=== PATIENT | female | born 1990 | race Caucasian/White ===

== ENCOUNTER 2016-12-12 09:20 | Day surgery (SDC) | payer BC, OTHER ==
--- NOTE | 2016-12-12 07:19 | PDGENHP ---
History and Physical History and Physical: Assessment and Plan: 1. Endometriosis determined by laparoscopy Lorrie has laparoscopic proven endometriosis, which appears to have been minimally treated, if at all. She has remained symptomatic for years. She has failed medical management. At the end of our discussion she is interested in surgical excision of all endometriosis. She and her are considering another sometime in the future. As a result, I would not recommend treating her vaginal prolapse at this time. I will perform her preoperative counseling over the phone. 2. Dysmenorrhea 3. Dyschezia 4. Dyspareunia, female 5. Constipation, unspecified Subjective: Patient ID: Lorrie Weiss is a 25 y.o. female who presents to [facility] for endometriosis. HPI Lorrie is a 25-year-old, para 2, woman, who presents todiscuss pelvic pain and endometriosis. She developed extremely painful menses began at the age of 16. The pain was so severe she felt presyncopal. At age 17 she had hematochezia and underwent a colonoscopy and upper endoscopy, which was apparently unremarkable. She was diagnosed with irritaable bowel syndrome. She was started on control pills at the age of 18. She has tried multiple different brands none of which adequately controlled her symptoms. Finally, in 2010 she underwent a laparoscopy by a doctor at [facility]. She was found to have endometriosis. Lorrie is not sure what he did during the surgery. However, afterwards, she was offered an IUD, Depo-Provera, or Lupron. She chose an IUD. She found this very uncomfortable with insertion. She did not find it helped any of her symptoms. After 2 year she had an ultrasound which showed the IUD in the cervix and it was removed. She then easily conceived her first daughter. Afterwards, she relatively easily conceived her second daughter last year. She breast-fed for 10 months to try to postpone recurrence of menses. She apparently was thought to have a cystocele, . Since resuming her menses her pain has become even worse than before. Her cycles are regular every month. She will bleed 5 days. 2-3 of the days are heavier when she will have to change her pad every 3 hours. She has found tampons are now painful to insert. She develops pain beginning 7 days before her menstrual flow. The pain significantly intensifies the day before her menses and the first 3 days of her flow. She will use Vicodin and ibuprofen, which only provide minimal relief. She describes the pain as a mid pelvic cramping pain as well as a severe left lower quadrant stabbing pain. The pain will radiate down both of her legs and to her low back. She feels as though a hot iron is going through her abdomen. She finds it very difficult to move at all even after taking the Vicodin. She has dyschezia the day before and during her menses, which is a deep pain. She has dyspareunia all month long. It is in the left mid abdomen. It also hurts for 2 days afterwards. She has no chest pain or shortness of breath with her menses. More recently, she has developed midcycle pain, which is not as severe as her dysmenorrhea. Vicodin does allow her to function does days. She under has been living in [place]. She and her have been for 6 years. 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 After her visit she did email me scanned intraoperative photos from her laparoscopy. She has endometriosis on both uterosacral ligaments, especially on the right. She appears to have deep lesions on the right ligament. She also has endometriosis in the posterior cul-de-sac and laterally in the pelvis. Both fallopian tubes have adhesions and endometriosis to the lateral pelvis. The fimbriated ends appeared to be intact. No obvious endometriosis was seen on the uterus. She appeared to have an endometrioma on the left ovary. Presumably, that was drained or removed. PastMedicalHistory Past Medical History: Diagnosis Date Depression Endometriosis Gastrointestinal disorder PastSurgicalHistory Past Surgical History: Procedure Laterality Date COLONOSCOPY 2008 HAND SURGERY Left 2015 PELVIC LAPAROSCOPY 2010 CURRENT MEDICATIONS: Current Outpatient Prescriptions Medication Sig ACETAMINOPHEN (TYLENOL PO) FLUoxetine (PROZAC) 10 mg capsule Take 1 capsule by mouth daily HYDROcodone-acetaminophen (NORCO) 5-325 mg This med has acetaminophen (APAP ). IBUPROFEN PO No current facility-administered medications for this visit. ALLERGIES: Ciprofloxacin I have reviewed, verified and agree with the past medical, surgical, , family, social and ROS history as documented by the RN today. Review of Systems Objective: Vital Signs: Visit Vitals BP 104/62 Pulse 80 Temp 37.1 C (98.8 F) (Temporal Artery) Resp 16 Ht 1.676 m (5' 6") Wt 61.8 kg (136 lb 3.2 oz) SpO2 98% BMI 21.98 kg/m2 Physical Exam Gen: This is an alert, well developed woman in no distress. Neuro: She moves all extremities. Psych: She is appropriate, oriented, with normal affect. Neck: No thyroid enlargement, adenopathy, or tenderness. Lungs: Clear to ascultation, no wheezes or rales. Heart: Regular rate and rhythm without obvious murmurs. Abdomen: Soft, non-tender, without guarding, rebound, or masses. Extremities: No edema or cyanosis. Pelvic: Normal external genitalia. Non-gaping introitus, vagina without discharge, adequately estrogenized, no significant prolapse. Cervix without lesions or discharge. Uterus normal sized, tender posteriorly, around the cervix with reduced mobility. The uterosacral ligaments are exquisitely tender with nodularity on the right. The introitus is gaping. She has an almost third-degree cystourethrocele and greater than a second-degree rectocele with a hypermobile perineal body. DATA: Pelvic ultrasound Findings: The uterus is mid position and measures 7.7 x 3.8 x 5.0 cm. The endometrium measures 8 mm. No obvious uterine abnormalities are seen. The right ovary measures 4.2 x 1.7 cm. It contains a 1.3 cm cyst on the medial aspect with a groundglass appearance. The left ovary is difficult to measure given the shadowing from the uterus. Both adnexa are exquisitely tender. They appear to be somewhat adherent to the pelvic sidewalls. Impression: Possible 1.3 cm medial right ovarian endometrioma. Tender adnexa, which may be adherent to the pelvic sidewalls. No evidence of adhesions between the posterior uterus and rectum. TIME/COMMUNICATION: I personally spent a total of 70 minutes. Of that 45 minutes was counseling/ coordination of patient's care. See my note above for details. Terrance Mathis MD Board Certified Female Pelvic Medicine and Reconstructive Surgery Director of Minimally Invasive Gynecologic Surgery, [facility] Minimally Invasive Gynecologic Surgery Designee
[2016-12-12] MEDS ORDERED: ceFAZolin 2 GM/DEXTROSE 100 ML IV ONE (09:39)
[2016-12-12] MEDS ORDERED: PHENAZOPYRIDINE HCL 100 MG TAB PO ONE (09:39)
[2016-12-12] MEDS ORDERED: PHENAZOPYRIDINE HCL 200 MG TAB PO ONE (09:45)
[2016-12-12] MEDS ORDERED: MIDAZOLAM 2 MG/2 ML VIAL IVP ONE (10:10)
--- NOTE | 2016-12-12 10:10 | PDANEPAE ---
ANE History of Present Illness laparoscopic excision of endometriosis ANE Past Medical History - Cardiovascular History Hx Hypertension: No Hx Arrhythmias: No Hx Chest Pain: No Hx Coronary Artery / Peripheral Vascular Disease: No Hx CHF / Valvular Disease: No Hx Palpitations: No - Pulmonary History Hx COPD: No Hx Asthma/Reactive Airway Disease: Yes Hx Recent Upper Respiratory Infection: No Hx Oxygen in Use at Home: No Hx Sleep Apnea: No Sleep Apnea Screening Result - Last Documented: Negative Pulmonary History Comment: childhood asthma- rarely uses inhaler. - Neurologic History Hx Cerebrovascular Accident: No Hx Seizures: No Hx Dementia: No - Endocrine History Hx Diabetes: No Hypothyroid: No Hyperthyroid: No - Renal History Hx Renal Disorders: Yes Renal History Comment: "w/flare up of endometriosis- difficult and painful to empty bladder", takes Percocet prn pain with period - Liver History Hx Hepatic Disorders: No - Neurological & Psychiatric Hx Hx Neurological and Psychiatric Disorders: Yes Neurological / Psychiatric History Comment: depression -on Rx - Cancer History Hx Cancer: No - Congenital Disorder History Hx Congenital Disorders: No - GI History GERD: no Hx Gastrointestinal Disorders: Yes Gastrointestinal History Comment: IBS ?(symptoms similar to endometriosis - Other Health History Other Health History: endometriosis problems about 10 yrs causing severe pain in back and pelvis. - Chronic Pain History Chronic Pain: Yes (pelvis/back) - Surgical History Prior Surgeries: cactus thorn excised from hand age 21. dx laparascopy age 19. colonoscopy/endoscopy ([place]) age 16. ANE Review of Systems Review of Systems: - Exercise capacity METS (RN): 4 METS ANE Patient History - Allergies Allergies/Adverse Reactions: ciprofloxacin Allergy (Verified 11/19/16 15:59) Vomiting - Home Medications Home Medications: FLUoxetine 11/19/16 [Last Taken 12/10/16] IBUPROFEN 11/19/16 [Last Taken 12/05/16] Percocet 5-325 mg Tablet 11/19/16 [Last Taken 12/10/16] - NPO status NPO Since - Liquids (Date): 12/12/16 NPO Since - Liquids (Time): 07:30 NPO Since - Solids (Date): 12/11/16 NPO Since - Solids (Time): 23:30 - Smoking Hx Smoking Status: Never smoked ANE Labs/Vital Signs - Vital Signs Blood Pressure: 134/75 Heart Rate: 74 Respiratory Rate: 16 O2 Sat (%): 99 Height: 167.64 cm Weight: 61.235 kg ANE Physical Exam - Airway Neck exam: FROM Mallampati Score: Class 1 Mouth exam: normal dental/mouth exam - Pulmonary Pulmonary: clear to auscultation - Cardiovascular Cardiovascular: regular rate and rhythym - ASA Status ASA Status: II ANE Anesthesia Plan Anesthesia Plan: general endotracheal anesthesia
[2016-12-12] MEDS ORDERED: LIDOCAINE 1% 2 ML INJ ID PRN (10:15)
[2016-12-12] MEDS ORDERED: LR 1,000 ML IV ONE (10:15)
[2016-12-12] MEDS ORDERED: PROPOFOL 200 MG/20 ML VIAL ONE ×3 (10:16→12:02)
[2016-12-12] MEDS ORDERED: fentaNYL 100 MCG/2 ML INJ ONE ×3 (10:16→12:41)
[2016-12-12] MEDS ORDERED: KETAMINE 100 MG/10 ML SYR ONE (10:16)
[2016-12-12] MEDS ORDERED: ROCURONIUM 50 MG/5 ML VIAL ONE ×2 (10:18→12:00)
[2016-12-12] MEDS ORDERED: BUPIVACAINE 0.5% 30 ML SDV ONE (10:19)
[2016-12-12] MEDS ORDERED: DEXAMETHASONE 4 MG/ML VIAL ONE ×2 (10:19)
[2016-12-12] MEDS ORDERED: PHENYLEPHRINE HCL 100 MCG/ML SYR ONE (10:44)
[2016-12-12] MEDS ORDERED: ONDANSETRON 4 MG/2 ML VIAL ONE (12:08)
[2016-12-12] MEDS ORDERED: GLYCOPYRROLATE 0.2 MG/1 ML VIAL ONE (12:11)
[2016-12-12] MEDS ORDERED: NEOSTIGMINE METHYLSULFATE 5 MG/5 ML SYR ONE (12:11)
[2016-12-12] MEDS: HYDROmorphONE/DILAUDID 1 MG/ML SYR IVP PRN ×3 (12:37→13:26)
[2016-12-12] MEDS ORDERED: HYDROmorphONE/DILAUDID 1 MG/ML SYR ONE (12:37)
[2016-12-12] MEDS ORDERED: NALOXONE HCL 0.4 MG/ML INJ IVP PRN (12:37)
[2016-12-12] MEDS ORDERED: OXYCODONE/APAP 5/325 TAB PO PRN (12:37)
[2016-12-12] MEDS: fentaNYL 100 MCG/2 ML INJ IVP PRN ×3 (12:42→13:10)
[2016-12-12] MEDS ORDERED: KETOROLAC 30 MG/1 ML SDV ONE (12:58)
[2016-12-12] MEDS ORDERED: KETOROLAC 30 MG/1 ML SDV IVP ONE ×2 (13:00)
[2016-12-12 13:05] VITALS: TEMP 97.3
[2016-12-12] MEDS ORDERED: OXYCODONE/APAP 5/325 TAB ONE (13:33)
[2016-12-12] MEDS ORDERED: DIAZEPAM 10 MG/2 ML SYR ONE (13:39)
[2016-12-12] MEDS ORDERED: DIAZEPAM 10 MG/2 ML SYR IVP ONE (13:45)
--- NOTE | 2016-12-12 13:52 | GOP ---
[f rep st] OPERATIVE REPORT DATE OF OPERATION: 12/12/2016 SURGEON: Terrance Mathis MD MED CARE MANAGER: Martina Comer CFA. ANESTHESIA: General. PREOPERATIVE DIAGNOSIS: 1. Endometriosis. 2. Pelvic pain. 3. Dysmenorrhea. 4. Dyspareunia. POSTOPERATIVE DIAGNOSIS: 1. Endometriosis. 2. Pelvic pain. 3. Dysmenorrhea. 4. Dyspareunia. PROCEDURE PERFORMED: 1. Robotic excision of extensive endometriosis throughout the posterior cul-de-sac, bilateral ovaria n fossa, and some in the anterior cul-de-sac. 2. Bilateral ureterolysis. 3. Excision of distal rectal lesion. 4. Bilateral ovarian pexy. FINDINGS: SPECIMENS: Pelvic peritoneum with endometriosis. ESTIMATED BLOOD LOSS: Less than 30 mL. DESCRIPTION OF PROCEDURE: COMPLICATIONS: None. DISPOSITION: Patient stable to PACU. PROCEDURE: The patient was taken to the operating room where she was identified. General anesthesia was administered and found to be adequate. She was placed in the lithotomy position and prepared an d draped in normal sterile fashion. A Vega catheter was placed in her bladder. A Hulka tenaculum was placed in the uterus for manipulation. A 1 cm infraumbilical incision was made with a scalpel. The Veress needle with the CO2 gas flowing w as advanced into the peritoneal cavity. The abdomen was then insufflated with carbon dioxide gas. T he 12 mm trocar followed by the laparoscope were then inserted. The upper abdomen was unremarkable. There was no evidence of endometriosis on either diaphragm, liver, stomach or upper abdominal bowel. Two lateral ports were placed in the right and 1 in the left under direct visualization. She then wa s placed in Trendelenburg position and the da Theo robot docked on the left side. The instruments w ere then brought into the abdominal cavity under direct visualization. The patient had extensive end ometriosis throughout the entire posterior cul-de-sac, with several lesions on each ovary as well as the posterior uterus. She had several lesions in the anterior cul-de-sac. There was no evidence of endometriomas. The lesion on the distal rectum was excised with the hot chuy. This extended approximately 30% to 50% of the muscularis. It was left attached to the peritoneum and was removed with the posterior cul -de-sac peritoneum. The entire posterior cul-de-sac peritoneum was then completely excised from the distal rectum up to and including the peritoneum over the cervix and laterally through the uterosacra l ligaments. Because of the extensive endometriosis overlying both ureters, a bilateral ureterolysis was required. The peritoneum at the pelvic brims were incised. The ureters were gently dissected free. The uret ers were lateralized off the overlying peritoneum and endometriosis all the way down to the bladder. Once this was accomplished, the entire ovarian fossa peritoneum from the pelvic brim all the way gaby n to the uterosacral ligament was completely excised. It extended anteriorly to both ovaries. The a nterior cul-de-sac peritoneum was then excised. Given the patient's cyclic pelvic pain, a bilateral ovarian pexy was performed by attaching the ovary to the ipsilateral round ligaments with 3-0 Vicryl Rapide suture. The pelvis was then copiously irrigated with sterile saline and hemostasis was present. Two sheets o f INTERCEED were placed in the posterior cul-de-sac. All specimens were removed. The robot was then undocked. The fascia was closed with 0 Vicryl and the skin with 4-0 Monocryl and surgical adhesive. Anesthesia was reversed and the patient was taken to the PACU awake and in stable condition. /[id number]/MODL
[2016-12-12 14:36] VITALS: BP 102/54; PULSE 84; RESP 14; O2SAT 98
--- NOTE | 2016-12-12 15:00 | POSTANESTH ---
Post Anesthetic Evaluation Cardiovascular Status: Normal, Stable Respiratory Status: Normal, Stable Level of Consciousness/Mental Status: Can Participate in Eval Pain Control: Adequate, Prn Tx Ordered Nausea/Vomiting Control: Adequate, Prn Tx Ordered Complications Possibly Related to Anesthesia: None Noted
== END 2016-12-12 15:50 | disposition home or self-care (01) ==
LOC: FSGY 09:20
PROVIDERS: ATTEND Obstetrics & Gynecology
PROC: 0DBP4ZZ Excision of Rectum, Percutaneous Endoscopic Approach (ICD-10-PCS; principal; 2016-12-12 10:45)
PROC: 8E0WXCZ Robotic Assisted Procedure of Trunk Region (ICD-10-PCS; principal; 2016-12-12 10:45)
PROC: 0UBF4ZZ Excision of Cul-de-sac, Percutaneous Endoscopic Approach (ICD-10-PCS; principal; 2016-12-12 10:45)
PROC: 0US24ZZ Reposition Bilateral Ovaries, Percutaneous Endoscopic Approach (ICD-10-PCS; principal; 2016-12-12 10:45)
PROC: 0UB24ZX Excision of Bilateral Ovaries, Percutaneous Endoscopic Approach, Diagnostic (ICD-10-PCS; principal; 2016-12-12 10:45)
DX: N80.3 Endometriosis of pelvic peritoneum (principal); N80.8 Other endometriosis; N94.6 Dysmenorrhea, unspecified; N94.10 Unspecified dyspareunia; K59.00 Constipation, unspecified; R10.2 Pelvic and perineal pain
CPT/HCPCS: 58662; 58679; C1765; J0690; J1100; J1170; J1885; J2250; J2370; J2405; J2704; J2710; J3010

== ENCOUNTER 2017-09-11 11:15 | Observation (INO) | payer OTHER ==
[~2017-09-11 11:15] MED LIST: MIDAZOLAM 2 MG/2 ML VIAL IVP ONE
[2017-09-11] MEDS ORDERED: fentaNYL 250 MCG/5 ML INJ ONE (11:54)
[2017-09-11] MEDS ORDERED: PROPOFOL/EMULSION 500 MG/50 ML BOTTLE IV ONE (11:55)
[2017-09-11] MEDS ORDERED: ceFAZolin 2 GM/SWFI 2 GM/20 ML SYR IVP ONE (12:21)
[2017-09-11] MEDS ORDERED: ACETAMINOPHEN 500 MG TAB PO ONE (12:21)
[2017-09-11] MEDS ORDERED: GABAPENTIN 400 MG CAP PO ONE (12:21)
[2017-09-11] MEDS ORDERED: PHENAZOPYRIDINE HCL 200 MG TAB PO ONE (12:21)
[2017-09-11] MEDS ORDERED: FAMOTIDINE 20 MG in NS 100 ML IV ONE (12:21)
[2017-09-11] MEDS ORDERED: LIDOCAINE 1% 2 ML INJ ID PRN (12:22)
[2017-09-11] MEDS ORDERED: LR 1,000 ML IV ONE (12:22)
--- NOTE | 2017-09-11 12:24 | PDHPUP ---
History & Physical Update H&P update statement: This history and physical update is based on an assessment of the patient which was completed after admission or registration (within 24 hours), but prior to the surgery/procedure. H&P update: H&P reviewed & patient examined, no change in patient's condition since H&P completed
[2017-09-11] MEDS ORDERED: ceFAZolin 2 GM/DEXTROSE 100 ML IV ONE (12:30)
[2017-09-11] MEDS ORDERED: BUPIVACAINE/EPI 0.5% 30 ML SDV ONE (12:43)
[2017-09-11] MEDS ORDERED: oxyCODONE IR 5 MG TAB PO PRN (12:48)
[2017-09-11] MEDS ORDERED: PROMETHAZINE HCL 25 MG/ML INJ IVP PRN ×2 (12:48→15:33)
[2017-09-11] MEDS ORDERED: NALOXONE HCL 0.4 MG/ML INJ IVP PRN (12:48)
[2017-09-11] MEDS ORDERED: LR 500 ML IV PRN (12:48)
[2017-09-11] MEDS ORDERED: HYDROmorphONE/DILAUDID 2 MG/ML INJ IVP PRN (12:48)
[2017-09-11] MEDS ORDERED: ONDANSETRON 4 MG/2 ML VIAL IVP PRN ×2 (12:48→15:33)
[2017-09-11] MEDS ORDERED: ALBUTEROL 3 ML DEYVIAL IH PRN (12:48)
--- NOTE | 2017-09-11 12:52 | PDANEPAE ---
ANE Past Medical History - Cardiovascular History Hx Hypertension: No Hx Arrhythmias: No Hx Chest Pain: No Hx Coronary Artery / Peripheral Vascular Disease: No Hx CHF / Valvular Disease: No Hx Palpitations: No - Pulmonary History Hx COPD: No Hx Asthma/Reactive Airway Disease: Yes Hx Recent Upper Respiratory Infection: No Hx Oxygen in Use at Home: No Hx Sleep Apnea: No Sleep Apnea Screening Result - Last Documented: Negative Pulmonary History Comment: childhood asthma- rarely uses inhaler. - Neurologic History Hx Cerebrovascular Accident: No Hx Seizures: No Hx Dementia: No - Endocrine History Hx Diabetes: No - Renal History Hx Renal Disorders: No Renal History Comment: "w/flare up of endometriosis- difficult and painful to empty bladder", takes Percocet prn pain with period - Liver History Hx Hepatic Disorders: No - Neurological & Psychiatric Hx Hx Neurological and Psychiatric Disorders: Yes Neurological / Psychiatric History Comment: depression,anxiety - Cancer History Hx Cancer: No - Congenital Disorder History Hx Congenital Disorders: No - GI History Hx Gastrointestinal Disorders: Yes Gastrointestinal History Comment: IBS ?(symptoms similar to endometriosis - Other Health History Other Health History: endometriosis problems about 10 yrs causing severe pain in back and pelvis. strep/flu currently. sinus infection - Chronic Pain History Chronic Pain: Yes (pelvis/back) - Surgical History Prior Surgeries: cactus thorn excised from hand age 21. dx laparascopy age 19. colonoscopy/endoscopy ([place]) age 16. ANE Review of Systems Review of Systems: - Exercise capacity METS (RN): 4 METS ANE Patient History - Allergies Allergies/Adverse Reactions: ciprofloxacin Allergy (Verified 08/16/17 14:51) Vomiting - Home Medications Home Medications: FLUoxetine 11/19/16 [Last Taken 09/10/17] IBUPROFEN 11/19/16 [Last Taken 09/06/17] Percocet 5-325 mg Tablet 08/16/17 [Last Taken 09/11/17 10:00] Valium 2 MG (*) 08/16/17 [Last Taken 09/10/17] Benadryl Allergy 09/11/17 [Last Taken 09/10/17] Vitamin C 09/11/17 [Last Taken 09/10/17] - NPO status NPO Since - Liquids (Date): 09/11/17 NPO Since - Liquids (Time): 10:30 NPO Since - Solids (Date): 09/10/17 NPO Since - Solids (Time): 02:00 - Smoking Hx Smoking Status: Never smoked - Family Anes Hx Family Hx Anesthesia Complications: none ANE Labs/Vital Signs - Vital Signs Blood Pressure: 122/82 Heart Rate: 78 Respiratory Rate: 16 O2 Sat (%): 98 Height: 167.64 cm Weight: 58.967 kg ANE Physical Exam - Airway Neck exam: FROM Mallampati Score: Class 1 Mouth exam: normal dental/mouth exam - Pulmonary Pulmonary: no respiratory distress, clear to auscultation - Cardiovascular Cardiovascular: regular rate and rhythym - ASA Status ASA Status: II ANE Anesthesia Plan Anesthesia Plan: general endotracheal anesthesia
[2017-09-11] MEDS ORDERED: FAMOTIDINE 20 MG/NACL 50 ML IV ONE (13:00)
[2017-09-11] MEDS ORDERED: SCOPOLAMINE HYDROBROMIDE 1 MG/3 DAYS PATCH TD SCH (13:00)
[2017-09-11] MEDS ORDERED: MIDAZOLAM 2 MG/2 ML VIAL ONE (13:14)
[2017-09-11] MEDS ORDERED: DEXAMETHASONE 4 MG/ML VIAL ONE ×2 (13:57)
[2017-09-11] MEDS ORDERED: METOCLOPRAMIDE 10 MG/2 ML VIAL ONE (13:57)
[2017-09-11] MEDS ORDERED: ONDANSETRON 4 MG/2 ML VIAL ONE (13:57)
[2017-09-11] MEDS ORDERED: ROCURONIUM 50 MG/5 ML VIAL ONE (13:57)
[2017-09-11] MEDS ORDERED: KETOROLAC 30 MG/1 ML SDV ONE (13:57)
[2017-09-11] MEDS ORDERED: ONDANSETRON DISINTEGRATING 4 MG TAB PO PRN (15:33)
--- NOTE | 2017-09-11 15:38 | POSTOPPROG ---
Post Op Note Date of Operation: 09/11/17 Surgeon: Terrance Mathis Administrative Assistant: Martina Comer Anesthesiologist: Froy Anesthesia: GET(General Endotracheal) Pre-op Diagnosis: Endometriosis, prolapse Post-op Diagnosis: Same Procedure: Robotic hyst/BSO, US lig colpopexy, excise endo, bilat ureterolysis, rectoc Findings: Ureters function at end of case Inf/Abcess present in the surg proc area at time of surgery?: No EBL: 50-100 Complications: None Specimen(s): Uterus tubes and ovaries, endo
[2017-09-11] MEDS ORDERED: fentaNYL 100 MCG/2 ML INJ ONE (15:49)
[2017-09-11] MEDS ORDERED: HYDROmorphONE/DILAUDID 1 MG/ML INJ ONE ×2 (15:49→16:40)
[2017-09-11] MEDS ORDERED: DIAZEPAM 5 MG/ML 1 ML SYR ONE (15:49)
[2017-09-11] MEDS: fentaNYL 100 MCG/2 ML INJ IVP PRN ×2 (15:51→16:00)
[2017-09-11] MEDS: DIAZEPAM 5 MG/ML 1 ML SYR IVP PRN ×2 (15:53→16:08)
--- NOTE | 2017-09-11 15:55 | POSTANESTH ---
Post Anesthetic Evaluation Cardiovascular Status: Normal, Stable Respiratory Status: Normal, Stable Level of Consciousness/Mental Status: Can Participate in Eval Complications Possibly Related to Anesthesia: None Noted
[2017-09-11] MEDS ORDERED: LR 1,000 ML IV SCH (16:00)
[2017-09-11] MEDS: HYDROmorphONE/DILAUDID 1 MG/ML INJ IVP PRN ×8 (16:01→23:20)
[2017-09-11] MEDS ORDERED: LORazepam 2 MG/ML INJ IVP ONE (16:30)
[2017-09-11] MEDS ORDERED: LORazepam 2 MG/ML INJ ONE (16:30)
[2017-09-11] MEDS: KETOROLAC 30 MG/1 ML SDV IVP SCH ×3 (19:08→20:14)
[2017-09-11] MEDS: SIMETHICONE 80 MG TAB CHEW PO SCH ×2 (20:41→22:21)
[2017-09-11] MEDS: DOCUSATE SODIUM 100 MG CAP PO SCH (20:41)
[2017-09-11] MEDS: LORazepam 2 MG/ML INJ IVP PRN (22:19)
[2017-09-11] MEDS: OXYCODONE/APAP 5/325 TAB PO PRN (22:21)
[2017-09-11] MEDS: ceFAZolin 2 GM/DEXTROSE 100 ML IV SCH (22:23)
--- NOTE | 2017-09-11 23:23 | GOP ---
[f rep st] OPERATIVE REPORT DATE OF OPERATION: 09/11/2017 SURGEON: Terrance Mathis MD HYDROMETER TESTER: Martina Comer CFA. ANESTHESIA: General. PREOPERATIVE DIAGNOSIS: 1. Endometriosis. 2. Dysmenorrhea. 3. Third-degree uterine prolapse. 4. Symptomatic rectocele. POSTOPERATIVE DIAGNOSIS: 1. Endometriosis. 2. Dysmenorrhea. 3. Third-degree uterine prolapse. 4. Symptomatic rectocele. PROCEDURE PERFORMED: 1. Robotic-assisted total laparoscopic hysterectomy, bilateral salpingo-oophorectomy. 2. Excision of extensive endometriosis in posterior cul-de-sac and bilateral ovarian fossa. 3. Excision of rectal lesion. 4. Uterosacral ligament colpopexy. 5. Bilateral ureterolysis. 6. Rectocele repair. 7. Cystoscopy. FINDINGS: SPECIMENS: 1. Uterus, bilateral tubes and ovaries. 1. Pelvic peritoneum with endometriosis. 2. ESTIMATED BLOOD LOSS: 50 mL. DESCRIPTION OF PROCEDURE: The patient was taken to the operating room where she was identified. Gen eral anesthesia was administered and found to be adequate. She was placed in the lithotomy position and prepared and draped in normal sterile fashion. A Vega catheter was placed in her bladder. A VC are uterine manipulator was placed into the endometrial cavity and sutured to the cervix. A 1 cm infraumbilical incision was made with a scalpel. The Veress needle with the CO2 gas flowing w as advanced into the peritoneal cavity. The abdomen was then insufflated with carbon dioxide gas. T he 12 mm trocar followed by the laparoscope were then inserted. The upper abdomen was unremarkable. There was no evidence of endometriosis on either diaphragm, liver, stomach, or upper abdominal intes tines. Two lateral ports were placed in the right and one on the left under direct visualization. She then was placed in Trendelenburg position and the da Theo robot docked on the left side. The instruments were then brought into the abdominal cavity under direct visualization. She was found to have endometriosis on the serosal surface of the uterus, both ovaries, posterior cul -de-sac, and bilateral ovarian fossa. The left round ligament was divided. The anterior leaf of the broad ligament was incised towards the bifurcation of the left common iliac vessels. A window was c reated in the posterior leaf anterior to the ureter which was easily identified to skeletonize the in fundibulopelvic vessels. They were then cauterized and transected. The anterior leaf of the broad l igament was then incised over the left uterine vessels and across the cervix. The left uterine vascu lature was then cauterized and transected. The exact same procedure was performed on the patient's r ight side. The adnexa were then removed to aid an excising the peritoneum of endometriosis. The les ion on the distal rectum was excised with the laparoscopic scissors. This extended approximately 30% to 50% through the muscularis. The entire posterior cul-de-sac peritoneum from the distal rectum up to the cervix and laterally to the uterosacral ligaments was completely excised. A bilateral ureter olysis was then required to excise the endometriosis overlying both ureters. The pelvic peritoneum a t the pelvic brim was incised. The ureters were gently dissected free and lateralized off the overly ing peritoneum and endometriosis on the pelvic brim all the way down to the bladder. Once this was a ccomplished, the entire ovarian fossa peritoneum on both sides was completely excised. A circumferen tial colpotomy incision was then made, and all specimens were removed through the vagina. The vagina l cuff was closed with a running suture of 0 V-Loc 180. A bilateral uterosacral ligament colpopexy w as performed by attaching the lateral aspects of the vaginal cuff to the ipsilateral uterosacral liga ments near the coccygeal-sacrospinous ligament complexes. This was accomplished with 0 Ethibond sutu re. The pelvis was then copiously irrigated with sterile saline, and hemostasis was present. The ro bot was then undocked. The fascia was closed with 0 Vicryl, skin with 4-0 Monocryl and surgical adhe sive. Cystoscopy was then performed. Both ureters had vigorous jets of urine. There was no evidence of bl adder injury. No sutures were seen within the bladder. No obvious pathology was seen. Attention was then turned to the rectocele repair. A transverse incision was made along the perineal body. The posterior vaginal epithelium was undermined with the Metzenbaum scissors and incised sagi ttally. The epithelium was gently dissected off at the underlying rectovaginal connective tissue. T he rectovaginal septum was reattached to the perineal body with interrupted sutures of 0 Vicryl. The bulbous spongiosis and transverse perineal muscles were then plicated in the midline. The excess ep ithelium was then trimmed and closed with a running 2-0 Vicryl suture. Vaginal packing was then plac ed. Anesthesia was reversed, and patient was taken to PACU awake, in stable condition. COMPLICATIONS: None. DISPOSITION: Patient stable to PACU. /[id number]/MODL
[2017-09-12] MEDS: KETOROLAC 30 MG/1 ML SDV IVP SCH (02:39)
[2017-09-12] MEDS: OXYCODONE/APAP 5/325 TAB PO PRN ×2 (02:39→07:50)
[2017-09-12] MEDS: LORazepam 2 MG/ML INJ IVP PRN (04:58)
[2017-09-12] MEDS: HYDROmorphONE/DILAUDID 1 MG/ML INJ IVP PRN ×2 (04:58→08:40)
[2017-09-12] MEDS: ceFAZolin 2 GM/DEXTROSE 100 ML IV SCH (05:15)
[2017-09-12] MEDS: SIMETHICONE 80 MG TAB CHEW PO SCH ×2 (07:50→16:58)
[2017-09-12] MEDS: DOCUSATE SODIUM 100 MG CAP PO SCH (07:50)
[2017-09-12 08:47] VITALS: BP 90/55
[2017-09-12] MEDS ORDERED: FLUoxetine 20 MG CAP PO SCH (10:15)
[2017-09-12] MEDS ORDERED: HYDROmorphONE/DILAUDID 2 MG TAB PO PRN (10:16)
[2017-09-12] MEDS ORDERED: KETOROLAC 30 MG/1 ML SDV IVP ONE (13:15)
== END 2017-09-12 14:30 | disposition home or self-care (01) ==
LOC: F3N 12:00 → F3E 12:27 → FOB 17:47
PROVIDERS: ADMIT Obstetrics & Gynecology; ATTEND Obstetrics & Gynecology
PROC: 0UN Female Reproductive System, Release (ICD-10-PCS; principal; 2017-09-11 13:45)
PROC: 0UT2FZZ Resection of Bilateral Ovaries, Via Natural or Artificial Opening With Percutaneous Endoscopic Assistance (ICD-10-PCS; principal; 2017-09-11 13:45)
PROC: 0UTC8ZZ Resection of Cervix, Via Natural or Artificial Opening Endoscopic (ICD-10-PCS; principal; 2017-09-11 13:45)
PROC: 0UT9FZZ Resection of Uterus, Via Natural or Artificial Opening With Percutaneous Endoscopic Assistance (ICD-10-PCS; principal; 2017-09-11 13:45)
PROC: 0UT7FZZ Resection of Bilateral Fallopian Tubes, Via Natural or Artificial Opening With Percutaneous Endoscopic Assistance (ICD-10-PCS; principal; 2017-09-11 13:45)
PROC: 8E0W8CZ Robotic Assisted Procedure of Trunk Region, Via Natural or Artificial Opening Endoscopic (ICD-10-PCS; principal; 2017-09-11 13:45)
PROC: 0DQP7ZZ Repair Rectum, Via Natural or Artificial Opening (ICD-10-PCS; principal; 2017-09-11 13:45)
PROC: 0UUG8JZ Supplement Vagina with Synthetic Substitute, Via Natural or Artificial Opening Endoscopic (ICD-10-PCS; principal; 2017-09-11 13:45)
DX: N80.3 Endometriosis of pelvic peritoneum (principal); N94.6 Dysmenorrhea, unspecified; N94.10 Unspecified dyspareunia; N81.3 Complete uterovaginal prolapse; N81.11 Cystocele, midline; N81.6 Rectocele
CPT/HCPCS: 57250; 57425; 58571; 58662; G0378; J0690; J1100; J1170; J1885; J2060; J2250; J2405; J2704; J2765; J3010; J3360